=== PATIENT | female | born 1975 | race Caucasian/White ===

== ENCOUNTER 2019-05-30 14:22 | Emergency (ER) | payer SELFPAY ==
[2019-05-30 14:26] VITALS: BP 146/88; PULSE 96; RESP 20; TEMP 36.2; O2SAT 91
--- NOTE | 2019-05-30 14:32 | DI.RAD.S_ITS ---
PROCEDURE: XR CHEST 1V INDICATIONS: soa TECHNIQUE: One view of the chest was acquired. COMPARISON: [facility], CR, XR CHEST 1 VIEW, 04/13/2019, 16:14. FINDINGS: Surgical changes and devices: None. Lungs and pleura: Lungs are clear. No pleural effusions or pneumothorax. Mediastinum: Mediastinal contours appear normal. Heart size is normal. Bones and chest wall: No suspicious bony lesions. Overlying soft tissues appear unremarkable. IMPRESSION: No acute cardiopulmonary process is evident. Dictated by: Anshu Valencia M.D. on 05/30/2019 at 14:29 Approved by: Anshu Valencia M.D. on 05/30/2019 at 14:29
[2019-05-30] MEDS: ALBUTEROL 2.5 MG/3 ML NEB (ADULT) INH (14:56)
[2019-05-30 15:04] VITALS: PULSE 78; RESP 20
[2019-05-30] MEDS: SODIUM CHLORIDE 0.9% 1,000 ML 1000 ML IV (15:19)
[2019-05-30] MEDS: ONDANSETRON 4 MG/2 ML INJ IV (15:19)
[2019-05-30] MEDS: BENZONATATE 100 MG CAPSULE PO (15:21)
[2019-05-30 15:24] LABS: Add Manual Diff / Slide Review NO; Basophils Absolute Auto 100 /uL (0-100); Eosinophils Absolute Auto 900 /uL (0-450); Eosinophils Percent Auto 11.3 % (2-4); Hematocrit 45.6 % (36-46); Hemoglobin 15.8 g/dL (12.0-16.0); Lymphocytes Absolute Auto 2000 /uL (1100-4500); Lymphocytes Percent Auto 25.6 % (25-40); Mean Corpuscular HGB Conc 34.8 % (30-36); Mean Corpuscular Hemoglobin 32.1 PG (26-34); Mean Corpuscular Volume 92.4 fL (80-100); Monocytes Absolute Auto 400 /uL (0-900); Monocytes Percent Auto 5.5 % (3-14); Neutrophils Absolute Auto 4500 /uL (1500-7000); Neutrophils Percent Auto 56.6 % (50-75); Platelet Count 179 X10^3/uL (150-400); Red Blood Cell Count 4.93 X10^6/uL (4.0-5.2); Red Cell Distribution Width 14.4 % (11.6-14.8)
--- NOTE | 2019-05-30 15:27 | CM.MNRNOTE ---
Oxygen sats at 88-90%. Placed on 2l NC
[2019-05-30 15:33] LABS: Alanine Aminotransferase 19 IU/L (9-52); Albumin 4.5 g/dL (3.5-5.0); Albumin Globulin Ratio 1.5 (1.0-2.8); Alkaline Phosphatase 70 U/L (38-126); Aspartate Aminotransferase 18 IU/L (14-36); BUN Creatinine Ratio 13.3 (6-22); Bilirubin Total 0.9 mg/dL (0.2-1.3); Blood Urea Nitrogen 12 mg/dL (7-17); Calcium 9.7 mg/dL (8.4-10.2); Carbon Dioxide 24 mmol/L (22-32); Chloride 107 mmol/L (98-107); Estimated Glomerular Filt Rate > 60.0 mL/min (>60); Globulin 3.1 g/dL (1.7-4.1); Glucose 100 mg/dL (70-100); HEMOLYSIS 17 (0-50); Potassium 4.3 mmol/L (3.4-5.1); Sodium 141 mmol/L (137-145); Total Protein 7.6 g/dL (6.3-8.2)
[2019-05-30] MEDS: methylPREDNISolone 125 MG/2 ML VIAL IV (15:43)
[2019-05-30] MEDS: ALBUTEROL/IPRATROPIUM 3 ML AMPUL INH (16:50)
[2019-05-30 16:54] VITALS: PULSE 70; RESP 21
[2019-05-30] MEDS: guaiFENesin Solution 100 MG/5 ML UDC PO (17:01)
[2019-05-30 17:59] VITALS: BP 125/87; PULSE 82; RESP 22; O2SAT 90
--- NOTE | 2019-05-30 18:39 | ED.SOB ---
HPI - SOB/Dyspnea <FIFI Perez - Last Filed: 05/30/19 19:10> General Chief Complaint: Shortness of Breath/Dyspnea Stated Complaint: states upper respiratory issue,cough,sob, nausea Time Seen by Provider: 05/30/19 14:36 Source: patient and family Mode of arrival: ambulatory Limitations: no limitations History of Present Illness The patient is a 44-year-old female former smoker who presents with her friend, stating she has a history of possible COPD. She presents with a chief complaint of upper respiratory congestion, cough, shortness of breath and slight nausea. She states this been going on for few weeks, is worsening. She states she has wheezing, using her inhaler at home. She states that this has happened before. She denies any fevers, but states she feels warm. She denies any chest pain, but states that she has some tightness across her lungs depending on the position. She has not taken anything at home to feel better other than her albuterol inhaler. Related Data Home Medications Medication Instructions Recorded Confirmed albuterol sulfate 1 puff INHALATION PRN PRN 05/30/19 05/30/19 Previous Rx's Medication Instructions Recorded prednisone 50 mg PO DAILY 6 Days #6 tab 05/30/19 Allergies Allergy/AdvReac Type Severity Reaction Status Date / Time prednisone AdvReac Agitated Verified 05/30/19 14:33 Review of Systems <FIFI Perez - Last Filed: 05/30/19 19:10> Review of Systems GENERAL: See HPI HEENT: Denies sinus pain, ear pain, sore throat, difficulty swallowing, dizziness. RESPIRATORY: See HPI CARDIOVASCULAR: Denies chest pain, palpitations, orthopnea, edema, GASTROINTESTINAL: Denies nausea, vomiting, abdominal pain, diarrhea, constipation, melena. : Denies dysuria, frequency, incontinence, hematuria, urinary retention. MUSCULOSKELETAL: denies weakness, joint pain, or bony pain SKIN: Denies rash, skin lesions, or other NEUROLOGIC: Denies weakness, headache, numbness, change in speech, confusion, seizures, incoordination. PSYCHIATRIC: No concerning psychosocial issues. 12 point review of systems is negative except for those stated above PFSH <FIFI Perez - Last Filed: 05/30/19 19:10> Medical History Ex-smoker (Acute) Social History Smoking Status: Never smoker Social History Smoking Status: Never smoker Exam <VINICIUS Perez - Last Filed: 05/30/19 19:10> Narrative Exam Narrative: GENERAL: Obese female in no acute distress. HEAD: Atraumatic. Normocephalic. No temporal or scalp tenderness. EYES: Pupils equal round and reactive. Extraocular motions intact. No scleral icterus. No injection or drainage. ENT: Nose without bleeding, purulent drainage or septal hematoma. Throat without erythema, tonsillar hypertrophy or exudate. Uvula midline. Airway patent. NECK: Trachea midline. No JVD or lymphadenopathy. Supple, nontender, no meningeal signs. CARDIOVASCULAR: Regular rate and rhythm without murmurs, gallops, or rubs. RESPIRATORY: Expiratory wheezes bilaterally all yost. Breath sounds equal bilaterally. No rales or rhonchi. No cough on exam. No accessory muscle use, no stridor. No retractions. GASTROINTESTINAL: Abdomen soft, non-tender, nondistended. No hepato-splenomegaly, or palpable masses. No guarding. Active bowel sounds all 4 quadrants. EXTREMITIES: No clubbing, cyanosis, or edema. No joint tenderness, effusion, or edema noted. BACK: Nontender without deformity or crepitance. No flank tenderness. NEURO: AOx3. SKIN: No rash or erythema. Initial Vital Signs Initial Vital Signs: Vital Signs Temperature 97.2 F L 05/30/19 14:26 Pulse Rate 96 H 05/30/19 14:26 Respiratory Rate 20 05/30/19 14:26 Blood Pressure 146/88 H 05/30/19 14:26 Pulse Oximetry 91 05/30/19 14:26 <Zayda Sears DO - Last Filed: 05/30/19 19:46> Initial Vital Signs Initial Vital Signs: Vital Signs Temperature 97.2 F L 05/30/19 14:26 Pulse Rate 96 H 05/30/19 14:26 Respiratory Rate 20 05/30/19 14:26 Blood Pressure 146/88 H 05/30/19 14:26 Pulse Oximetry 91 05/30/19 14:26 Course <ADRYAN PerezP-BC - Last Filed: 05/30/19 19:10> Orders Ordered: ED Orders 05/30/19 14:32 XR chest 1V Stat EKG-12 Lead Stat 05/30/19 15:10 Complete Blood Count AUTO DIFF Stat Comprehensive Metabolic Panel Stat Discontinued Medications Albuterol (Ventolin) 2.5 mg INH NOW ONE Stop: 05/30/19 14:55 Last Admin: 05/30/19 14:56 Dose: 2.5 mg Albuterol/Ipratropium (Duoneb) 3 ml INH NOW ONE Stop: 05/30/19 16:27 Last Admin: 05/30/19 16:50 Dose: 3 ml Benzonatate (Tessalon Perles) 100 mg PO NOW ONE Stop: 05/30/19 15:13 Last Admin: 05/30/19 15:21 Dose: 100 mg Guaifenesin (Robitussin Liquid) 100 mg PO NOW ONE Stop: 05/30/19 16:47 Last Admin: 05/30/19 17:01 Dose: 100 mg Sodium Chloride (Normal Saline 0.9%) 1,000 mls @ 1,000 mls/hr IV BOLUS ONE Stop: 05/30/19 16:03 Last Infusion: 05/30/19 16:30 Dose: 0 mls/hr Admin: 05/30/19 15:19 Dose: 1,000 mls/hr Methylprednisolone (Solu-Medrol 125 Mg Vial) 125 mg IV NOW ONE Stop: 05/30/19 15:40 Last Admin: 05/30/19 15:43 Dose: 125 mg Ondansetron HCl (Zofran) 4 mg IV NOW ONE Stop: 05/30/19 15:05 Last Admin: 05/30/19 15:19 Dose: 4 mg Vital Signs - 8 hr 05/30/19 14:26 05/30/19 15:04 05/30/19 16:54 Temperature 97.2 F L Pulse Rate 96 H 78 70 Respiratory Rate 20 20 21 Blood Pressure 146/88 H Pulse Oximetry 91 05/30/19 17:59 Temperature Pulse Rate 82 Respiratory Rate 22 Blood Pressure 125/87 Pulse Oximetry 90 L <Zayda Sears DO - Last Filed: 05/30/19 19:46> Orders Ordered: ED Orders 05/30/19 14:32 XR chest 1V Stat EKG-12 Lead Stat 05/30/19 15:10 Complete Blood Count AUTO DIFF Stat Comprehensive Metabolic Panel Stat Discontinued Medications Albuterol (Ventolin) 2.5 mg INH NOW ONE Stop: 05/30/19 14:55 Last Admin: 05/30/19 14:56 Dose: 2.5 mg Albuterol/Ipratropium (Duoneb) 3 ml INH NOW ONE Stop: 05/30/19 16:27 Last Admin: 05/30/19 16:50 Dose: 3 ml Benzonatate (Tessalon Perles) 100 mg PO NOW ONE Stop: 05/30/19 15:13 Last Admin: 05/30/19 15:21 Dose: 100 mg Guaifenesin (Robitussin Liquid) 100 mg PO NOW ONE Stop: 05/30/19 16:47 Last Admin: 05/30/19 17:01 Dose: 100 mg Sodium Chloride (Normal Saline 0.9%) 1,000 mls @ 1,000 mls/hr IV BOLUS ONE Stop: 05/30/19 16:03 Last Infusion: 05/30/19 16:30 Dose: 0 mls/hr Admin: 05/30/19 15:19 Dose: 1,000 mls/hr Methylprednisolone (Solu-Medrol 125 Mg Vial) 125 mg IV NOW ONE Stop: 05/30/19 15:40 Last Admin: 05/30/19 15:43 Dose: 125 mg Ondansetron HCl (Zofran) 4 mg IV NOW ONE Stop: 05/30/19 15:05 Last Admin: 05/30/19 15:19 Dose: 4 mg Vital Signs - 8 hr 05/30/19 14:26 05/30/19 15:04 05/30/19 16:54 Temperature 97.2 F L Pulse Rate 96 H 78 70 Respiratory Rate 20 20 21 Blood Pressure 146/88 H Pulse Oximetry 91 05/30/19 17:59 Temperature Pulse Rate 82 Respiratory Rate 22 Blood Pressure 125/87 Pulse Oximetry 90 L MDM - SOB/Dyspnea <VINICIUS Perez - Last Filed: 05/30/19 19:10> Lab Data Result diagrams: 05/30/19 15:10 05/30/19 15:10 Lab Results 07/24/19 07/24/19 Range/Units 15:10 15:10 WBC 8.0 (4.5-11.0) X10^3/uL RBC 4.93 (4.0-5.2) X10^6/uL Hgb 15.8 (12.0-16.0) g/dL Hct 45.6 (36-46) % MCV 92.4 (80-100) fL MCH 32.1 (26-34) PG MCHC 34.8 (30-36) % RDW 14.4 (11.6-14.8) % Plt Count 179 (150-400) X10^3/uL Neut % (Auto) 56.6 (50-75) % Lymph % (Auto) 25.6 (25-40) % [place] % (Auto) 5.5 (3-14) % Eos % (Auto) 11.3 H (2-4) % Baso % (Auto) 1.0 (0-2) % Neut # (Auto) 4500 (3625-0347) /uL Lymph # (Auto) 2000 (3525-1863) /uL [place] # (Auto) 400 (0-900) /uL Eos # (Auto) 900 H (0-450) /uL Baso # (Auto) 100 (0-100) /uL Sodium 141 (137-145) mmol/L Potassium 4.3 (3.4-5.1) mmol/L Chloride 107 (98-107) mmol/L Carbon Dioxide 24 (22-32) mmol/L BUN 12 (7-17) mg/dL Creatinine 0.90 (0.52-1.04) mg/dL Estimated GFR > 60.0 (>60) mL/min BUN/Creatinine Ratio 13.3 (6-22) Glucose 100 (70-100) mg/dL Calcium 9.7 (8.4-10.2) mg/dL Total Bilirubin 0.9 (0.2-1.3) mg/dL AST 18 (14-36) IU/L ALT 19 (9-52) IU/L Alkaline Phosphatase 70 (38-126) U/L Total Protein 7.6 (6.3-8.2) g/dL Albumin 4.5 (3.5-5.0) g/dL Globulin 3.1 (1.7-4.1) g/dL Albumin/Globulin Ratio 1.5 (1.0-2.8) Imaging Data Chest x-ray: Radiologist's impression: [address] [address] XRay Report Signed Patient: Nayla Salazar [facility]#: [id number] : 1975Acct:[id number] Age/Sex: 44 / FDate of Service: 05/30/19 Loc: ED Accession Number: [id number] Procedure: XR chest 1V Ordering Provider: Zayda Sarah PROCEDURE: XR CHEST 1V INDICATIONS: soa TECHNIQUE: One view of the chest was acquired. COMPARISON: [facility], , XR CHEST 1 VIEW, 04/13/2019, 16:14. FINDINGS: Surgical changes and devices: None. Lungs and pleura: Lungs are clear. No pleural effusions or pneumothorax. Mediastinum: Mediastinal contours appear normal. Heart size is normal. Bones and chest wall: No suspicious bony lesions. Overlying soft tissues appear unremarkable. IMPRESSION: No acute cardiopulmonary process is evident. Dictated by: Anshu Valencia M.D. on 05/30/2019 at 14:29 Approved by: Anshu Valencia M.D. on 05/30/2019 at 14:29 ECG Data Attestation: I personally reviewed and interpreted this ECG as follows: Interpretation: Sinus rhythm. Ventricular rate 88. No ectopy noted. No ST elevation or depression noted. AR interval 120. QRS 105. Viewed by Dr Orion PIERRE Narrative Medical decision making narrative: The patient is a 44-year-old female who presents with a chief complaint of difficulty breathing. She has a clean chest x-ray, but is very wheezy on exam. She was evaluated by a a respiratory therapist several times throughout her stay. She does not have an elevated white blood cell count, which is reassuring. However despite nebulizers as well as IV steroids, the patient persistently maintained SpO2 in the 88-92 range. She did not want to stay in the hospital, and adamantly refused. She is GCS 15, and capable of making her decisions. When she made this decision, she was 92% on room air will speaking with me. I discussed at length that she can come back to the emergency department for any acute concerns such as chest pain, worsening shortness of breath. I discussed that she is risking by leaving the hospital. I did give her prescription of steroids. Of note she has steroids listed as an allergy, but states she gets mean when she takes them. She was able to tolerate them well in the emergency department today. I discussed at length that she is leaving against medical advice, especially given her low oxygen levels. She is okay with this and does not want to be admitted to the hospital. She does state that she follow up with her PCP or come back to the ER if needed. <Zayda Sears, DO - Last Filed: 05/30/19 19:46> Lab Data Lab Results 05/30/19 05/30/19 Range/Units 15:10 15:10 WBC 8.0 (4.5-11.0) X10^3/uL RBC 4.93 (4.0-5.2) X10^6/uL Hgb 15.8 (12.0-16.0) g/dL Hct 45.6 (36-46) % MCV 92.4 (80-100) fL MCH 32.1 (26-34) PG MCHC 34.8 (30-36) % RDW 14.4 (11.6-14.8) % Plt Count 179 (150-400) X10^3/uL Neut % (Auto) 56.6 (50-75) % Lymph % (Auto) 25.6 (25-40) % [place] % (Auto) 5.5 (3-14) % Eos % (Auto) 11.3 H (2-4) % Baso % (Auto) 1.0 (0-2) % Neut # (Auto) 4500 (5075-7863) /uL Lymph # (Auto) 2000 (2636-1856) /uL [place] # (Auto) 400 (0-900) /uL Eos # (Auto) 900 H (0-450) /uL Baso # (Auto) 100 (0-100) /uL Sodium 141 (137-145) mmol/L Potassium 4.3 (3.4-5.1) mmol/L Chloride 107 (98-107) mmol/L Carbon Dioxide 24 (22-32) mmol/L BUN 12 (7-17) mg/dL Creatinine 0.90 (0.52-1.04) mg/dL Estimated GFR > 60.0 (>60) mL/min BUN/Creatinine Ratio 13.3 (6-22) Glucose 100 (70-100) mg/dL Calcium 9.7 (8.4-10.2) mg/dL Total Bilirubin 0.9 (0.2-1.3) mg/dL AST 18 (14-36) IU/L ALT 19 (9-52) IU/L Alkaline Phosphatase 70 (38-126) U/L Total Protein 7.6 (6.3-8.2) g/dL Albumin 4.5 (3.5-5.0) g/dL Globulin 3.1 (1.7-4.1) g/dL Albumin/Globulin Ratio 1.5 (1.0-2.8) Discharge Plan Departure Patient Disposition: Left Against Medical Advice Clinical Impression: Wheezing Discharge Date/Time: 05/30/19 18:00 Interventions: ED Discharge Assessment Last Done: 05/30/19 17:59 Instructions: DI for Shortness of Breath Activity Restrictions/Additional Instructions: You did not want to get admitted to the hospital today. I have given you a prescription of steroids. Please follow up with primary care provider as soon as possible. Please come back to the emergency department for any acute concerns such as severe chest pain or shortness of breath. You are leaving against medical advice given your oxygen levels. Prescriptions: New prednisone 50 mg tablet 50 mg PO DAILY 6 Days Qty: 6 RF: 0 No Action albuterol sulfate 90 mcg/actuation Aerosol Powdr Breath Activated 1 puff inhalation PRN PRN (Reason: Shortness Of Breath) RF: 0 Stand Alone Forms: Against Medical Advice <Zayda Sears DO - Last Filed: 05/30/19 19:46> Cosign ED Attending Shawnature Attestation: I was immediately available in the department for consultation. This documentation has been reviewed and I agree with assessment and plan. Supervised by Zayda Sears DO
--- NOTE | 2019-05-30 19:07 | ED_ITS ---
HPI - SOB/Dyspnea <FIFI Perez - Last Filed: 05/30/19 19:10> General Chief Complaint: Shortness of Breath/Dyspnea Stated Complaint: states upper respiratory issue,cough,sob, nausea Time Seen by Provider: 05/30/19 14:36 Source: patient and family Mode of arrival: ambulatory Limitations: no limitations History of Present Illness The patient is a 44-year-old female former smoker who presents with her friend, stating she has a history of possible COPD. She presents with a chief complaint of upper respiratory congestion, cough, shortness of breath and slight nausea. She states this been going on for few weeks, is worsening. She states she has wheezing, using her inhaler at home. She states that this has happened before. She denies any fevers, but states she feels warm. She denies any chest pain, but states that she has some tightness across her lungs depending on the position. She has not taken anything at home to feel better other than her albuterol inhaler. Related Data Home Medications Medication Instructions Recorded Confirmed albuterol sulfate 1 puff INHALATION PRN PRN 05/30/19 05/30/19 Previous Rx's Medication Instructions Recorded prednisone 50 mg PO DAILY 6 Days #6 tab 05/30/19 Allergies Allergy/AdvReac Type Severity Reaction Status Date / Time prednisone AdvReac Agitated Verified 05/30/19 14:33 Review of Systems <FIFI Perez - Last Filed: 05/30/19 19:10> Review of Systems GENERAL: See HPI HEENT: Denies sinus pain, ear pain, sore throat, difficulty swallowing, dizziness. RESPIRATORY: See HPI CARDIOVASCULAR: Denies chest pain, palpitations, orthopnea, edema, GASTROINTESTINAL: Denies nausea, vomiting, abdominal pain, diarrhea, constipation, melena. : Denies dysuria, frequency, incontinence, hematuria, urinary retention. MUSCULOSKELETAL: denies weakness, joint pain, or bony pain SKIN: Denies rash, skin lesions, or other NEUROLOGIC: Denies weakness, headache, numbness, change in speech, confusion, seizures, incoordination. PSYCHIATRIC: No concerning psychosocial issues. 12 point review of systems is negative except for those stated above PFSH <FIFI Perez - Last Filed: 05/30/19 19:10> Medical History Ex-smoker (Acute) Social History Smoking Status: Never smoker Social History Smoking Status: Never smoker Exam <VINICIUS Perez - Last Filed: 05/30/19 19:10> Narrative Exam Narrative: GENERAL: Obese female in no acute distress. HEAD: Atraumatic. Normocephalic. No temporal or scalp tenderness. EYES: Pupils equal round and reactive. Extraocular motions intact. No scleral icterus. No injection or drainage. ENT: Nose without bleeding, purulent drainage or septal hematoma. Throat without erythema, tonsillar hypertrophy or exudate. Uvula midline. Airway patent. NECK: Trachea midline. No JVD or lymphadenopathy. Supple, nontender, no meningeal signs. CARDIOVASCULAR: Regular rate and rhythm without murmurs, gallops, or rubs. RESPIRATORY: Expiratory wheezes bilaterally all yost. Breath sounds equal bilaterally. No rales or rhonchi. No cough on exam. No accessory muscle use, no stridor. No retractions. GASTROINTESTINAL: Abdomen soft, non-tender, nondistended. No hepato- splenomegaly, or palpable masses. No guarding. Active bowel sounds all 4 quadrants. EXTREMITIES: No clubbing, cyanosis, or edema. No joint tenderness, effusion, or edema noted. BACK: Nontender without deformity or crepitance. No flank tenderness. NEURO: AOx3. SKIN: No rash or erythema. Initial Vital Signs Initial Vital Signs: Vital Signs Temperature 97.2 F L 05/30/19 14:26 Pulse Rate 96 H 05/30/19 14:26 Respiratory Rate 20 05/30/19 14:26 Blood Pressure 146/88 H 05/30/19 14:26 Pulse Oximetry 91 05/30/19 14:26 <Zayda Sears DO - Last Filed: 05/30/19 19:46> Initial Vital Signs Initial Vital Signs: Vital Signs Temperature 97.2 F L 05/30/19 14:26 Pulse Rate 96 H 05/30/19 14:26 Respiratory Rate 20 05/30/19 14:26 Blood Pressure 146/88 H 05/30/19 14:26 Pulse Oximetry 91 05/30/19 14:26 Course <ADRYAN PerezP-BC - Last Filed: 05/30/19 19:10> Orders Ordered: ED Orders 05/30/19 14:32 XR chest 1V Stat EKG-12 Lead Stat 05/30/19 15:10 Complete Blood Count AUTO DIFF Stat Comprehensive Metabolic Panel Stat Discontinued Medications Albuterol (Ventolin) 2.5 mg INH NOW ONE Stop: 05/30/19 14:55 Last Admin: 05/30/19 14:56 Dose: 2.5 mg Albuterol/Ipratropium (Duoneb) 3 ml INH NOW ONE Stop: 05/30/19 16:27 Last Admin: 05/30/19 16:50 Dose: 3 ml Benzonatate (Tessalon Perles) 100 mg PO NOW ONE Stop: 05/30/19 15:13 Last Admin: 05/30/19 15:21 Dose: 100 mg Guaifenesin (Robitussin Liquid) 100 mg PO NOW ONE Stop: 05/30/19 16:47 Last Admin: 05/30/19 17:01 Dose: 100 mg Sodium Chloride (Normal Saline 0.9%) 1,000 mls @ 1,000 mls/hr IV BOLUS ONE Stop: 05/30/19 16:03 Last Infusion: 05/30/19 16:30 Dose: 0 mls/hr Admin: 05/30/19 15:19 Dose: 1,000 mls/hr Methylprednisolone (Solu-Medrol 125 Mg Vial) 125 mg IV NOW ONE Stop: 05/30/19 15:40 Last Admin: 05/30/19 15:43 Dose: 125 mg Ondansetron HCl (Zofran) 4 mg IV NOW ONE Stop: 05/30/19 15:05 Last Admin: 05/30/19 15:19 Dose: 4 mg Vital Signs - 8 hr 05/30/19 14:26 05/30/19 15:04 05/30/19 16:54 Temperature 97.2 F L Pulse Rate 96 H 78 70 Respiratory Rate 20 20 21 Blood Pressure 146/88 H Pulse Oximetry 91 05/30/19 17:59 Temperature Pulse Rate 82 Respiratory Rate 22 Blood Pressure 125/87 Pulse Oximetry 90 L <Zayda Sears DO - Last Filed: 05/30/19 19:46> Orders Ordered: ED Orders 05/30/19 14:32 XR chest 1V Stat EKG-12 Lead Stat 05/30/19 15:10 Complete Blood Count AUTO DIFF Stat Comprehensive Metabolic Panel Stat Discontinued Medications Albuterol (Ventolin) 2.5 mg INH NOW ONE Stop: 05/30/19 14:55 Last Admin: 05/30/19 14:56 Dose: 2.5 mg Albuterol/Ipratropium (Duoneb) 3 ml INH NOW ONE Stop: 05/30/19 16:27 Last Admin: 05/30/19 16:50 Dose: 3 ml Benzonatate (Tessalon Perles) 100 mg PO NOW ONE Stop: 05/30/19 15:13 Last Admin: 05/30/19 15:21 Dose: 100 mg Guaifenesin (Robitussin Liquid) 100 mg PO NOW ONE Stop: 05/30/19 16:47 Last Admin: 05/30/19 17:01 Dose: 100 mg Sodium Chloride (Normal Saline 0.9%) 1,000 mls @ 1,000 mls/hr IV BOLUS ONE Stop: 05/30/19 16:03 Last Infusion: 05/30/19 16:30 Dose: 0 mls/hr Admin: 05/30/19 15:19 Dose: 1,000 mls/hr Methylprednisolone (Solu-Medrol 125 Mg Vial) 125 mg IV NOW ONE Stop: 05/30/19 15:40 Last Admin: 05/30/19 15:43 Dose: 125 mg Ondansetron HCl (Zofran) 4 mg IV NOW ONE Stop: 05/30/19 15:05 Last Admin: 05/30/19 15:19 Dose: 4 mg Vital Signs - 8 hr 05/30/19 14:26 05/30/19 15:04 05/30/19 16:54 Temperature 97.2 F L Pulse Rate 96 H 78 70 Respiratory Rate 20 20 21 Blood Pressure 146/88 H Pulse Oximetry 91 05/30/19 17:59 Temperature Pulse Rate 82 Respiratory Rate 22 Blood Pressure 125/87 Pulse Oximetry 90 L MDM - SOB/Dyspnea <VINICIUS Perez - Last Filed: 05/30/19 19:10> Lab Data Result diagrams: 05/30/19 15:10 05/30/19 15:10 Lab Results 07/24/19 07/24/19 Range/Units 15:10 15:10 WBC 8.0 (4.5-11.0) X10^3/uL RBC 4.93 (4.0-5.2) X10^6/uL Hgb 15.8 (12.0-16.0) g/dL Hct 45.6 (36-46) % MCV 92.4 (80-100) fL MCH 32.1 (26-34) PG MCHC 34.8 (30-36) % RDW 14.4 (11.6-14.8) % Plt Count 179 (150-400) X10^3/uL Neut % (Auto) 56.6 (50-75) % Lymph % (Auto) 25.6 (25-40) % [place] % (Auto) 5.5 (3-14) % Eos % (Auto) 11.3 H (2-4) % Baso % (Auto) 1.0 (0-2) % Neut # (Auto) 4500 (9566-3220) /uL Lymph # (Auto) 2000 (8874-7414) /uL [place] # (Auto) 400 (0-900) /uL Eos # (Auto) 900 H (0-450) /uL Baso # (Auto) 100 (0-100) /uL Sodium 141 (137-145) mmol/L Potassium 4.3 (3.4-5.1) mmol/L Chloride 107 (98-107) mmol/L Carbon Dioxide 24 (22-32) mmol/L BUN 12 (7-17) mg/dL Creatinine 0.90 (0.52-1.04) mg/dL Estimated GFR > 60.0 (>60) mL/min BUN/Creatinine Ratio 13.3 (6-22) Glucose 100 (70-100) mg/dL Calcium 9.7 (8.4-10.2) mg/dL Total Bilirubin 0.9 (0.2-1.3) mg/dL AST 18 (14-36) IU/L ALT 19 (9-52) IU/L Alkaline Phosphatase 70 (38-126) U/L Total Protein 7.6 (6.3-8.2) g/dL Albumin 4.5 (3.5-5.0) g/dL Globulin 3.1 (1.7-4.1) g/dL Albumin/Globulin Ratio 1.5 (1.0-2.8) Imaging Data Chest x-ray: Radiologist's impression: [address] [address] XRay Report Signed Patient: Nayla Salazar [facility]#: [id number] : 1975Acct:[id number] Age/Sex: 44 / FDate of Service: 05/30/19 Loc: ED Accession Number: [id number] Procedure: XR chest 1V Ordering Provider: Zayda Sarah PROCEDURE: XR CHEST 1V INDICATIONS: soa TECHNIQUE: One view of the chest was acquired. COMPARISON: [facility], , XR CHEST 1 VIEW, 04/13/2019, 16:14. FINDINGS: Surgical changes and devices: None. Lungs and pleura: Lungs are clear. No pleural effusions or pneumothorax. Mediastinum: Mediastinal contours appear normal. Heart size is normal. Bones and chest wall: No suspicious bony lesions. Overlying soft tissues appear unremarkable. IMPRESSION: No acute cardiopulmonary process is evident. Dictated by: Anshu Valencia M.D. on 05/30/2019 at 14:29 Approved by: Anshu Valencia M.D. on 05/30/2019 at 14:29 ECG Data Attestation: I personally reviewed and interpreted this ECG as follows: Interpretation: Sinus rhythm. Ventricular rate 88. No ectopy noted. No ST elevation or depression noted. NH interval 120. QRS 105. Viewed by Dr Orion PIERRE Narrative Medical decision making narrative: The patient is a 44-year-old female who presents with a chief complaint of difficulty breathing. She has a clean chest x-ray, but is very wheezy on exam. She was evaluated by a a respiratory therapist several times throughout her stay. She does not have an elevated white blood cell count, which is reassuring. However despite nebulizers as well as IV steroids, the patient persistently maintained SpO2 in the 88-92 range. She did not want to stay in the hospital, and adamantly refused. She is GCS 15, and capable of making her decisions. When she made this decision, she was 92% on room air will speaking with me. I discussed at length that she can come back to the emergency department for any acute concerns such as chest pain, worsening shortness of breath. I discussed that she is risking by leaving the hospital. I did give her prescription of steroids. Of note she has steroids listed as an allergy, but states she gets mean when she takes them. She was able to tolerate them well in the emergency department today. I discussed at length that she is leaving against medical advice, especially given her low oxygen levels. She is okay with this and does not want to be admitted to the hospital. She does state that she follow up with her PCP or come back to the ER if needed. <Zayda Sears, DO - Last Filed: 05/30/19 19:46> Lab Data Lab Results 05/30/19 05/30/19 Range/Units 15:10 15:10 WBC 8.0 (4.5-11.0) X10^3/uL RBC 4.93 (4.0-5.2) X10^6/uL Hgb 15.8 (12.0-16.0) g/dL Hct 45.6 (36-46) % MCV 92.4 (80-100) fL MCH 32.1 (26-34) PG MCHC 34.8 (30-36) % RDW 14.4 (11.6-14.8) % Plt Count 179 (150-400) X10^3/uL Neut % (Auto) 56.6 (50-75) % Lymph % (Auto) 25.6 (25-40) % [place] % (Auto) 5.5 (3-14) % Eos % (Auto) 11.3 H (2-4) % Baso % (Auto) 1.0 (0-2) % Neut # (Auto) 4500 (9351-1834) /uL Lymph # (Auto) 2000 (4782-1507) /uL [place] # (Auto) 400 (0-900) /uL Eos # (Auto) 900 H (0-450) /uL Baso # (Auto) 100 (0-100) /uL Sodium 141 (137-145) mmol/L Potassium 4.3 (3.4-5.1) mmol/L Chloride 107 (98-107) mmol/L Carbon Dioxide 24 (22-32) mmol/L BUN 12 (7-17) mg/dL Creatinine 0.90 (0.52-1.04) mg/dL Estimated GFR > 60.0 (>60) mL/min BUN/Creatinine Ratio 13.3 (6-22) Glucose 100 (70-100) mg/dL Calcium 9.7 (8.4-10.2) mg/dL Total Bilirubin 0.9 (0.2-1.3) mg/dL AST 18 (14-36) IU/L ALT 19 (9-52) IU/L Alkaline Phosphatase 70 (38-126) U/L Total Protein 7.6 (6.3-8.2) g/dL Albumin 4.5 (3.5-5.0) g/dL Globulin 3.1 (1.7-4.1) g/dL Albumin/Globulin Ratio 1.5 (1.0-2.8) Discharge Plan Departure Patient Disposition: Left Against Medical Advice Clinical Impression: Wheezing Discharge Date/Time: 05/30/19 18:00 Interventions: ED Discharge Assessment Last Done: 05/30/19 17:59 Instructions: DI for Shortness of Breath Activity Restrictions/Additional Instructions: You did not want to get admitted to the hospital today. I have given you a prescription of steroids. Please follow up with primary care provider as soon as possible. Please come back to the emergency department for any acute concerns such as severe chest pain or shortness of breath. You are leaving against medical advice given your oxygen levels. Prescriptions: New prednisone 50 mg tablet 50 mg PO DAILY 6 Days Qty: 6 RF: 0 No Action albuterol sulfate 90 mcg/actuation Aerosol Powdr Breath Activated 1 puff inhalation PRN PRN (Reason: Shortness Of Breath) RF: 0 Stand Alone Forms: Against Medical Advice <Zayda Sears DO - Last Filed: 05/30/19 19:46> Cosign ED Attending Shawnature Attestation: I was immediately available in the department for consultation. This documentation has been reviewed and I agree with assessment and plan. Supervised by Zayda Sears DO
== END 2019-05-30 18:00 | disposition left against medical advice (07) ==
PROVIDERS: Emergency Provider Nurse Practitioner Family
DX: R06.2 Wheezing (principal); R06.02 Shortness of breath
CPT/HCPCS: 36591; 71045; 80053; 85025; 93005; 94640; 96361; 96374; 96375; 99283; 99285; J2405; J2930; J7613

== ENCOUNTER 2021-02-25 11:08 | Emergency (ER) | payer SELFPAY ==
[2021-02-25 11:13] VITALS: BP 138/81; PULSE 84; RESP 15; TEMP 36.8; O2SAT 97; BMI 44.6
--- NOTE | 2021-02-25 11:54 | ED_ITS ---
HPI - Dental/Oral General Chief complaint: Dental/Oral Stated complaint: hx of jaw abscess x28 days Time Seen by Provider: 02/25/21 11:28 Source: patient Mode of arrival: Ambulatory Limitations: no limitations History of Present Illness HPI Narrative: Patient complains left jaw swelling with tooth pain for the past 28 days. Treated 1 month ago for 10 days penicillin without improvement. Patient states has poor dentition. Tooth 20. Is source of pain patient states. Seen by [place] emergency department 1 month ago. Denies does not want test. Does not smoke cigarettes. No diabetes. Denies any heart problems. Denies any dyspnea or trouble swallowing. Patient states she is currently living in her motor home. Complaint: tooth pain Related Data Home Medications Medication Instructions Recorded Confirmed albuterol sulfate 1 puff INHALATION PRN PRN 05/30/19 05/30/19 Previous Rx's Medication Instructions Recorded hydrocodone-acetaminophen 1 tab PO Q6H PRN #15 tab 02/25/21 ondansetron 4 mg PO Q8H PRN #10 tab 02/25/21 Allergies Allergy/AdvReac Type Severity Reaction Status Date / Time prednisone AdvReac Agitated Verified 02/25/21 11:16 Review of Systems Review of Systems Narrative: GENERAL: Denies chills, fatigue, malaise, fever, sweats. HEENT: Denies sinus pain, ear pain, sore throat, complaint of tooth pain RESPIRATORY: Denies dyspnea, cough CARDIOVASCULAR: Denies chest pain, palpitations GASTROINTESTINAL: Denies nausea, vomiting, abdominal pain : Denies dysuria, frequency, hematuria MUSCULOSKELETAL: denies muscle or bony pain SKIN: Denies rash, skin lesions NEUROLOGIC: Denies weakness, numbness ROS Unobtainable: All systems reviewed & are unremarkable except as noted in HPI and below Patient History Medical History Ex-smoker Social History Smoking Status: Never smoker Smoking Status: Never smoker alcohol intake frequency: holidays/special occasions only Substance Use Type: marijuana Exam Narrative Exam Narrative: GENERAL: in no distress, not toxic not dyspneic HEAD: Normocephalic. EYES: Pupils equal round No scleral icterus. No injection no discharge ENT: Mucous membranes moist. Tenderness to tooth 20. Poor dentition of this tooth. No palpable surrounding abscess. No tongue elevation no malocclusion no drooling. No stridor. NECK: Trachea midline. Mild tenderness left submandibular area. Skin is warm soft and pink no induration or erythema. No palpable abscess. There is edema at the left submandibular area. No stridor. CARDIOVASCULAR: Regular rate and rhythm without murmurs RESPIRATORY: Clear to auscultation. Breath sounds equal bilaterally. No wheezes, rales, or rhonchi. Speaking full sentences no distress GASTROINTESTINAL: Abdomen soft, non-tender EXTREMITIES: No gross deformities. BACK: No flank tenderness. NEURO: AOx4. SKIN: Warm and dry PSYCH: Not anxious, is cooperative Initial Vital Signs Initial Vital Signs: Vital Signs Temperature 98.2 F 02/25/21 11:13 Pulse Rate 84 02/25/21 11:13 Respiratory Rate 15 02/25/21 11:13 Blood Pressure 138/81 02/25/21 11:13 Pulse Oximetry 97 02/25/21 11:13 Course Course Course Narrative: Pain controlled while here. No new issues. No respiratory compromise Orders Ordered: Discontinued Medications Sodium Chloride (Normal Saline 0.9%) 500 mls @ 1,000 mls/hr IV BOLUS ONE Stop: 02/25/21 12:21 Last Infusion: 02/25/21 13:43 Dose: 0 mls/hr Documented by: Admin: 02/25/21 12:23 Dose: 1,000 mls/hr Documented by: ARNOLD Ketorolac Tromethamine (Ketorolac 60 Mg/2 Ml Vial) 15 mg IV NOW ONE Stop: 02/25/21 11:53 Last Admin: 02/25/21 12:24 Dose: 15 mg Documented by: ARNOLD Reevaluation(s) Reevaluation #1: Reviewed results with patient. Currently no abscess or cellulitis. White cell count normal. No fever. Appropriate for discharge home and follow-up with Oral maxillofacial/dentist. Will give patient referral. Patient agrees with treatment plan. Patient has history of Crohn's. She states she needs a work note for tomorrow Time: 14:10 Vital Signs Vital signs: Vital Signs - 8 hr 02/25/21 11:13 02/25/21 12:32 02/25/21 12:33 Temperature 98.2 F Pulse Rate 84 55 L 55 L Respiratory Rate 15 Blood Pressure 138/81 142/70 H Pulse Oximetry 97 98 02/25/21 12:34 Temperature Pulse Rate 58 L Respiratory Rate 17 Blood Pressure 140/80 Pulse Oximetry 99 MDM - Dental/Oral Differential Diagnosis Differential diagnosis: Likely gingival abscess, dental caries, toothache, dental abscess and fracture of tooth Lab Data Attestation: I reviewed the patient's lab results. Result diagrams: 02/25/21 12:09 02/25/21 12:09 Labs: Lab Results 02/25/21 02/25/21 Range/Units 12:09 12:09 WBC 5.3 (4.5-11.0) X10^3/uL RBC 4.35 (4.0-5.2) X10^6/uL Hgb 13.8 (12.0-16.0) g/dL Hct 40.4 (36-46) % MCV 92.9 (80-100) fL MCH 31.7 (26-34) PG MCHC 34.1 (30-36) % RDW 13.8 (11.6-14.8) % Plt Count 165 (150-400) X10^3/uL Neut % (Auto) 71.4 (50-75) % Lymph % (Auto) 15.2 L (25-40) % [place] % (Auto) 7.6 (3-14) % Eos % (Auto) 5.1 H (2-4) % Baso % (Auto) 0.7 (0-2) % Neut # (Auto) 3800 (2611-7827) /uL Lymph # (Auto) 800 L (8273-2259) /uL [place] # (Auto) 400 (0-900) /uL Eos # (Auto) 300 (0-450) /uL Baso # (Auto) 0 (0-100) /uL Sodium 140 (137-145) mmol/L Potassium 4.2 (3.4-5.1) mmol/L Chloride 109 H (98-107) mmol/L Carbon Dioxide 24 (22-32) mmol/L BUN 10 (7-17) mg/dL Creatinine 1.02 (0.52-1.04) mg/dL Estimated GFR 58.9 L (>60) mL/min BUN/Creatinine Ratio 9.8 (6-22) Glucose 91 (70-100) mg/dL Calcium 9.4 (8.4-10.2) mg/dL Imaging Data CT soft tissue neck: Radiologist's Impression: [address] [id number] Scan ReportSigned Patient: Nayla Salazar [facility]#: [id number]: 1975Acct:[id number]/Sex: 46 / FDate of Service: 02/25/21Loc: EDAccession Number: [id number] Procedure: CT soft tissue neck w con Ordering Provider: Lance Jade MD PROCEDURE: CT SOFT TISSUE NECK W CON INDICATIONS: Left jaw swelling TECHNIQUE: After the administration of intravenous contrast, 3.0 mm axial sections acquired from the sella to the aortic arch. Additional oblique axial 3.0 mm sections acquired through the pharynx. 3 mm thick coronal and sagittal reformats were generated. For radiation dose reduction, the following was used: automated exposure control. COMPARISON: , CT, CT FACIAL BONES WITH CONTRAST, 02/04/2021, 17:43. FINDINGS: Image quality: Excellent. Lymph nodes: No enlarged lymph nodes seen throughout the neck. Vessels: Visualized vasculature appears patent. Neck spaces: The oropharynx, nasopharynx, and pharynx demonstrate no mucosal lesions. The vocal cords, false vocal cords, pyriform sinuses, epiglottis, vallecula, and tongue base all appear normal. Extramucosal spaces appear unremarkable. Glands: The parotid and submandibular glands appear normal. Thyroid gland is unremarkable Miscellaneous: Visualized brain and orbits appear normal. Lung apices appear clear. Superficial soft tissues appear normal. Bones: As before, probable dental implant in the anterior right maxilla. There are no maxillary teeth present. The appearance of the maxilla is unchanged. Again noted is very poor dentition involving the mandibular teeth. There are multiple broken teeth. A prominent periapical lucency surrounding a left mandibular molar is unchanged. Posterior to this tooth, there are 2 small teeth which are barely in place. Visualized sinuses and mastoids appear unremarkable. IMPRESSION: 1. Poor dentition. 2. Left molar periapical lucency is unchanged. There are multiple broken teeth. 3. No deep space abscess in the adjacent tissues surrounding the maxilla or mandible. No neck abscess. Dictated by: Theo Trinidad M.D. on 02/25/2021 at 12:51 Approved by: Theo Trinidad M.D. on 02/25/2021 at 12:59 MDM Narrative Medical decision making narrative: Appropriate for discharge home and follow-up. Ongoing for 1 month. No infection. Patient agrees with treatment plan. Pain medicine/pain control provided for patient. Patient not toxic. Not dyspneic. No drooling. Protecting airway. Discharge Plan Departure Patient Disposition: Home Clinical Impression: Dental caries, Toothache Instructions: Tooth Decay Prevention (Alternative Therapy), Tooth Decay, DI for Dental Pain Activity Restrictions/Additional Instructions: No driving or operating machinery with prescribed pain medication. Call provided oral maxillofacial surgeon today for appointment within 1 week. Return if worse or if any questions or concerns Prescriptions: New hydrocodone-acetaminophen 5-325 mg tablet 1 tab PO Q6H PRN (Reason: pain) Qty: 15 RF: 0 ondansetron 4 mg tablet,disintegrating 4 mg PO Q8H PRN (Reason: nausea and vomiting) Qty: 10 RF: 0 No Action albuterol sulfate 90 mcg/actuation Aerosol Powdr Breath Activated 1 puff inhalation PRN PRN (Reason: Shortness Of Breath) RF: 0 Referrals: Adrien Corbin DMD [Physician] -
[2021-02-25 12:17] LABS: Add Manual Diff / Slide Review NO; Basophils Absolute Auto 0 /uL (0-100); Basophils Percent Auto 0.7 % (0-2); Eosinophils Absolute Auto 300 /uL (0-450); Eosinophils Percent Auto 5.1 % (2-4); Hematocrit 40.4 % (36-46); Hemoglobin 13.8 g/dL (12.0-16.0); Lymphocytes Absolute Auto 800 /uL (1100-4500); Lymphocytes Percent Auto 15.2 % (25-40); Mean Corpuscular HGB Conc 34.1 % (30-36); Mean Corpuscular Hemoglobin 31.7 PG (26-34); Mean Corpuscular Volume 92.9 fL (80-100); Monocytes Absolute Auto 400 /uL (0-900); Monocytes Percent Auto 7.6 % (3-14); Neutrophils Absolute Auto 3800 /uL (1500-7000); Neutrophils Percent Auto 71.4 % (50-75); Platelet Count 165 X10^3/uL (150-400); Red Blood Cell Count 4.35 X10^6/uL (4.0-5.2); Red Cell Distribution Width 13.8 % (11.6-14.8); White Blood Cell Count 5.3 X10^3/uL (4.5-11.0)
[2021-02-25] MEDS: SODIUM CHLORIDE 0.9% 500 ML 1000 ML IV (12:23)
[2021-02-25] MEDS: KETOROLAC 60 MG/2 ML VIAL 15 MG IV (12:24)
--- NOTE | 2021-02-25 12:25 | PC.NURSE ---
Left face swelling
[2021-02-25 12:28] LABS: BUN Creatinine Ratio 9.8 (6-22); Blood Urea Nitrogen 10 mg/dL (7-17); Calcium 9.4 mg/dL (8.4-10.2); Carbon Dioxide 24 mmol/L (22-32); Chloride 109 mmol/L (98-107); Estimated Glomerular Filt Rate 58.9 mL/min (>60); Glucose 91 mg/dL (70-100); HEMOLYSIS < 15 (0-50); Potassium 4.2 mmol/L (3.4-5.1); Sodium 140 mmol/L (137-145)
[2021-02-25 12:32] VITALS: PULSE 55; O2SAT 98
[2021-02-25 12:33] VITALS: BP 142/70; PULSE 55
[2021-02-25 12:34] VITALS: BP 140/80; PULSE 58; RESP 17; O2SAT 99
[2021-02-25 14:20] VITALS: BP 160/82; PULSE 58; RESP 18; O2SAT 98
== END 2021-02-25 14:20 | disposition home or self-care (01) ==
PROVIDERS: Emergency Provider Emergency Medicine
DX: K02.9 Dental caries, unspecified (principal); K08.89 Other specified disorders of teeth and supporting structures
CPT/HCPCS: 36415; 70491; 80048; 85025; 96361; 96374; 99284; J1885

== ENCOUNTER 2022-04-06 10:56 | Emergency (ER) | payer SELFPAY ==
[2022-04-06] VITALS (11 sets, daily range): BP systolic 126–173; BP diastolic 58–91; PULSE 73–98; RESP 16–36; TEMP 36.4; O2SAT 90–97; BMI 44.6
--- NOTE | 2022-04-06 11:22 | DI.RAD.S_ITS ---
PROCEDURE: XR CHEST 2V INDICATIONS: shortness of breath TECHNIQUE: 2 views of the chest were acquired. COMPARISON: [facility], CR, XR CHEST 1V, 05/30/2019, 14:37. FINDINGS: Surgical changes and devices: None. Lungs and pleura: Lungs are clear. No pleural effusions or pneumothorax. Mediastinum: Mediastinal contours are normal. Heart size is normal. Bones and chest wall: No suspicious bony abnormalities. Soft tissues appear unremarkable. IMPRESSION: No acute cardiopulmonary findings. Dictated by: Adwoa Orellana M.D. on 04/06/2022 at 12:03 Approved by: Adwoa Orellana M.D. on 04/06/2022 at 12:04
--- NOTE | 2022-04-06 11:36 | ED_ITS ---
HPI - SOB/Dyspnea General Chief Complaint: Shortness of Breath/Dyspnea Stated Complaint: SOB, nausea Time Seen by Provider: 04/06/22 11:36 Source: patient Mode of arrival: Ambulatory Limitations: no limitations History of Present Illness HPI Narrative: 47F nonsmoker with history of asthma presents with increasing shortness of breath for the past few days. She has been using her nebulizers at home more than normal and they stopped helping much over the past few days. She denies any fever or chills. She denies any chest pain. She has no nausea, vomiting or diarrhea. She states historically she tends to do better when she is on steroids. She is in a tenuous situation with her job and is unable to fill any prescriptions until her next paycheck on Tuesday. Related Data Home Medications Medication Instructions Recorded Confirmed albuterol sulfate 90 mcg/actuation 1 puff INHALATION PRN PRN 05/30/19 05/30/19 breath activated powder inhaler Previous Rx's Medication Instructions Recorded hydrocodone 5 mg-acetaminophen 325 1 tab PO Q6H PRN #15 tab 02/25/21 mg tablet ondansetron 4 mg disintegrating 4 mg PO Q8H PRN #10 tab 02/25/21 tablet prednisone 10 mg tablet See Rx Instructions .ROUTE 04/06/22 .COMPLEX #30 tab Allergies Allergy/AdvReac Type Severity Reaction Status Date / Time No Known Drug Allergies Allergy Verified 04/06/22 11:18 Review of Systems Review of Systems Narrative: GENERAL: Denies chills, fatigue, malaise, fever, sweats. HEENT: Denies sinus pain, ear pain, sore throat, difficulty swallowing, dizziness. RESPIRATORY: See HPI CARDIOVASCULAR: Denies chest pain, palpitations, orthopnea, edema, GASTROINTESTINAL: Denies nausea, vomiting, abdominal pain, diarrhea, constipation, melena. : Denies dysuria, frequency, incontinence, hematuria, urinary retention. MUSCULOSKELETAL: denies weakness, joint pain, or bony pain SKIN: Denies rash, skin lesions, or other NEUROLOGIC: Denies weakness, headache, numbness, change in speech, confusion, seizures, incoordination. PSYCHIATRIC: No concerning psychosocial issues. 12 point review of systems is negative except for those stated above Patient History Medical History Ex-smoker Social History Smoking Status: Never smoker Smoking Status: Never smoker alcohol intake frequency: holidays/special occasions only Substance Use Type: marijuana Exam Narrative Exam Narrative: GENERAL: [47] year old patient appears stated age. Well-developed patient, in mild distress. HEAD: Atraumatic. Normocephalic. EYES: Pupils equal round and reactive. Extraocular motions intact. No scleral icterus. No injection or drainage. ENT: Nose without bleeding, purulent drainage. Throat without erythema, tonsillar hypertrophy or exudate. Airway patent. NECK: Trachea midline. Non tender CARDIOVASCULAR: Regular rate and rhythm without murmurs, gallops, or rubs. RESPIRATORY: Increased work of breathing, wheezing throughout GASTROINTESTINAL: Abdomen soft, non-tender, nondistended. EXTREMITIES: No edema or joint tenderness. BACK: Nontender without deformity or crepitance. No flank tenderness. NEURO: AOx3. SKIN: No rash or erythema of visible areas Initial Vital Signs Initial Vital Signs: Vital Signs Temperature 97.5 F L 04/06/22 11:18 Pulse Rate 98 H 04/06/22 11:18 Respiratory Rate 16 04/06/22 11:18 Blood Pressure 173/91 H 04/06/22 11:18 Pulse Oximetry 93 04/06/22 11:18 Course Orders Ordered: Discontinued Medications Albuterol (Albuterol 2.5 Mg/3 Ml Neb (Adult)) 2.5 mg INH NOW ONE Stop: 04/06/22 11:47 Last Admin: 04/06/22 12:20 Dose: 2.5 mg Documented by: MILTON Albuterol (Albuterol Hfa Prepack) 1 box MISC SEEINSTR ONE Stop: 04/06/22 14:38 Last Admin: 04/06/22 14:42 Dose: 1 box Documented by: MILTON Albuterol/Ipratropium (Albuterol/Ipratropium 3 Ml Ampul) 3 ml INH NOW ONE Stop: 04/06/22 11:23 Last Admin: 04/06/22 11:40 Dose: 3 ml Documented by: MILTON Dexamethasone (Dexamethasone 10 Mg/Ml Vial) 10 mg IV NOW ONE Stop: 04/06/22 12:06 Last Admin: 04/06/22 12:46 Dose: 10 mg Documented by: HELENA Reevaluation(s) Reevaluation #1: Significant improvement after DuoNeb Vital Signs Vital signs: Vital Signs - 8 hr 04/06/22 11:18 04/06/22 11:41 Temperature 97.5 F L Pulse Rate 98 H 98 H Respiratory Rate 16 16 Blood Pressure 173/91 H Pulse Oximetry 93 93 MDM - SOB/Dyspnea Lab Data Result diagrams: 04/06/22 11:30 04/06/22 11:30 Labs: Lab Results 04/06/22 04/06/22 04/06/22 Range/Units 11:25 11:30 11:30 WBC 6.6 (4.5-11.0) X10^3/uL RBC 4.54 (4.0-5.2) X10^6/uL Hgb 14.6 (12.0-16.0) g/dL Hct 42.0 (36-46) % MCV 92.6 (80-100) fL MCH 32.2 (26-34) PG MCHC 34.8 (30-36) % RDW 13.8 (11.6-14.8) % Plt Count 158 (150-400) X10^3/uL Neut % (Auto) 62.1 (50-75) % Lymph % (Auto) 21.1 L (25-40) % [place] % (Auto) 4.6 (3-14) % Eos % (Auto) 11.3 H (2-4) % Baso % (Auto) 0.9 (0-2) % Neut # (Auto) 4100 (4332-8928) /uL Lymph # (Auto) 1400 (8083-8205) /uL [place] # (Auto) 300 (0-900) /uL Eos # (Auto) 800 H (0-450) /uL Baso # (Auto) 100 (0-100) /uL PT (10.1-12.7) SECONDS INR (0.9-1.3) Sodium 142 (137-145) mmol/L Potassium 4.2 (3.4-5.1) mmol/L Chloride 111 H (98-107) mmol/L Carbon Dioxide 21 L (22-32) mmol/L BUN 12 (7-17) mg/dL Creatinine 0.94 (0.52-1.04) mg/dL Estimated GFR > 60 (>60) mL/min BUN/Creatinine Ratio 12.8 (6-22) Glucose 102 H (70-100) mg/dL Lactate (0.7-2.1) mmol/L Calcium 9.1 (8.4-10.2) mg/dL Total Bilirubin 0.5 (0.2-1.3) mg/dL AST 32 (14-36) IU/L ALT 21 (<35) IU/L Alkaline Phosphatase 70 (38-126) U/L NT-Pro-B Natriuret Pep (<125) pg/mL Total Protein 7.1 (6.3-8.2) g/dL Albumin 4.3 (3.5-5.0) g/dL Globulin 2.8 (1.7-4.1) g/dL Albumin/Globulin Ratio 1.5 (1.0-2.8) SARS-CoV-2 (PCR) Negative (Negative) 04/06/22 04/06/22 04/06/22 Range/Units 11:30 11:30 11:30 WBC (4.5-11.0) X10^3/uL RBC (4.0-5.2) X10^6/uL Hgb (12.0-16.0) g/dL Hct (36-46) % MCV (80-100) fL MCH (26-34) PG MCHC (30-36) % RDW (11.6-14.8) % Plt Count (150-400) X10^3/uL Neut % (Auto) (50-75) % Lymph % (Auto) (25-40) % [place] % (Auto) (3-14) % Eos % (Auto) (2-4) % Baso % (Auto) (0-2) % Neut # (Auto) (5508-4068) /uL Lymph # (Auto) (1034-0981) /uL [place] # (Auto) (0-900) /uL Eos # (Auto) (0-450) /uL Baso # (Auto) (0-100) /uL PT 10.7 (10.1-12.7) SECONDS INR 1.0 (0.9-1.3) Sodium (137-145) mmol/L Potassium (3.4-5.1) mmol/L Chloride (98-107) mmol/L Carbon Dioxide (22-32) mmol/L BUN (7-17) mg/dL Creatinine (0.52-1.04) mg/dL Estimated GFR (>60) mL/min BUN/Creatinine Ratio (6-22) Glucose (70-100) mg/dL Lactate 0.9 (0.7-2.1) mmol/L Calcium (8.4-10.2) mg/dL Total Bilirubin (0.2-1.3) mg/dL AST (14-36) IU/L ALT (<35) IU/L Alkaline Phosphatase (38-126) U/L NT-Pro-B Natriuret Pep 32 (<125) pg/mL Total Protein (6.3-8.2) g/dL Albumin (3.5-5.0) g/dL Globulin (1.7-4.1) g/dL Albumin/Globulin Ratio (1.0-2.8) SARS-CoV-2 (PCR) (Negative) Imaging Data Chest x-ray: Radiologist's Impression: Launch?Image [address] [address] XRay Report Signed Patient: Nayla Salazar MR#: [id number] : 1975 Acct:[id number] Age/Sex: 47 / F Date of Service: 04/06/22 Loc: ED Accession Number: [id number] ?? Procedure: XR chest 2V Ordering Provider: Cornelio Mariee D.O. PROCEDURE:? XR CHEST 2V ? INDICATIONS:? shortness of breath ? TECHNIQUE:? 2 views of the chest were acquired.? ? COMPARISON:? [facility], , XR CHEST 1V, 05/30/2019, 14:37. ? FINDINGS:? ? Surgical changes and devices:? None.? ? Lungs and pleura:? Lungs are clear.? No pleural effusions or pneumothorax.? ? Mediastinum:? Mediastinal contours are normal.? Heart size is normal.? ? Bones and chest wall:? No suspicious bony abnormalities.? Soft tissues appear unremarkable.? ? IMPRESSION:? No acute cardiopulmonary findings. ? ? Dictated by: Adwoa Orellana M.D. on 04/06/2022 at 12:03 ? ? Approved by: Adwoa Orellana M.D. on 04/06/2022 at 12:04 ? MDM Narrative Medical decision making narrative: Patient presents with increasing shortness of breath and lack of responsiveness to typical therapies. She has stable vital signs, no evidence of infection, clear chest x-ray and significant improvement with bronchodilators and steroids. She is ambulatory without hypoxemia, feeling significant improvement, no i ndication for antibiotics. Return precautions discussed and questions answered to her apparent satisfaction Discharge Plan Departure Patient Disposition: Home Clinical Impression: Asthma with exacerbation Instructions: DI for Asthma -- Adult Activity Restrictions/Additional Instructions: *You have been diagnosed with [asthma exacerbation] *What to do: *Please continue to take your regular medications as directed. [x ] New medication prescriptions sent to your pharmacy: [ [facility] in [facility] [place]] [ ] New medication written as a paper prescription [ ] No new medications given *Please follow up with your primary care provider in 2-3 days, call for an appo intment. Let them know you were seen in the Emergency Department and that we ask that you be seen in follow up. We will electronically transmit a record of today's note if your PCP is in our system *If you do not have a primary care provider please contact the [facility] Resource line at [phone]. They will ask some questions about your medical history and help get you set up with a doctor in the community. *Return to Emergency Department if you should have any new, worsening or conc erning symptoms, such as [fever greater than 101 F, shaking chills, worsening pain, persistent vomiting or other bothersome symptoms] Prescriptions: New prednisone 10 mg tablet See Rx Instructions .ROUTE .COMPLEX Qty: 30 0RF Rx Instructions: Day 1,2,3: 40mg PO Daily Day 4,5,6: 30mg PO Daily Day 7,8,9: 20mg PO Daily Day 10,11,12: 10mg PO Daily #30 No Action albuterol sulfate 90 mcg/actuation Aerosol Powdr Breath Activated 1 puff inhalation PRN PRN (Reason: Shortness Of Breath) 0RF hydrocodone-acetaminophen 5-325 mg tablet 1 tab PO Q6H PRN (Reason: pain) Qty: 15 0RF ondansetron 4 mg tablet,disintegrating 4 mg PO Q8H PRN (Reason: nausea and vomiting) Qty: 10 0RF
[2022-04-06 11:39] LABS: Add Manual Diff / Slide Review NO; Basophils Absolute Auto 100 /uL (0-100); Basophils Percent Auto 0.9 % (0-2); Eosinophils Absolute Auto 800 /uL (0-450); Eosinophils Percent Auto 11.3 % (2-4); Hemoglobin 14.6 g/dL (12.0-16.0); Lymphocytes Absolute Auto 1400 /uL (1100-4500); Lymphocytes Percent Auto 21.1 % (25-40); Mean Corpuscular HGB Conc 34.8 % (30-36); Mean Corpuscular Hemoglobin 32.2 PG (26-34); Mean Corpuscular Volume 92.6 fL (80-100); Monocytes Absolute Auto 300 /uL (0-900); Monocytes Percent Auto 4.6 % (3-14); Neutrophils Absolute Auto 4100 /uL (1500-7000); Neutrophils Percent Auto 62.1 % (50-75); Platelet Count 158 X10^3/uL (150-400); Red Blood Cell Count 4.54 X10^6/uL (4.0-5.2); Red Cell Distribution Width 13.8 % (11.6-14.8); White Blood Cell Count 6.6 X10^3/uL (4.5-11.0)
[2022-04-06] MEDS: ALBUTEROL/IPRATROPIUM 3 ML AMPUL INH (11:40)
[2022-04-06 11:49] LABS: Prothrombin Time 10.7 SECONDS (10.1-12.7)
[2022-04-06 11:54] LABS: Lactate (Lactic Acid) 0.9 mmol/L (0.7-2.1)
[2022-04-06 11:54] LABS: COVID19 -Nasal RAPID Negative (Negative)
[2022-04-06 11:55] LABS: Alanine Aminotransferase 21 IU/L (<35); Albumin 4.3 g/dL (3.5-5.0); Albumin Globulin Ratio 1.5 (1.0-2.8); Alkaline Phosphatase 70 U/L (38-126); Aspartate Aminotransferase 32 IU/L (14-36); BUN Creatinine Ratio 12.8 (6-22); Bilirubin Total 0.5 mg/dL (0.2-1.3); Blood Urea Nitrogen 12 mg/dL (7-17); Calcium 9.1 mg/dL (8.4-10.2); Carbon Dioxide 21 mmol/L (22-32); Chloride 111 mmol/L (98-107); Estimated Glomerular Filt Rate > 60 mL/min (>60); Globulin 2.8 g/dL (1.7-4.1); Glucose 102 mg/dL (70-100); HEMOLYSIS 16 (0-50); Potassium 4.2 mmol/L (3.4-5.1); Sodium 142 mmol/L (137-145); Total Protein 7.1 g/dL (6.3-8.2)
[2022-04-06 12:03] LABS: NT-proBNP (BNP-Adult 18+) 32 pg/mL (<125)
[2022-04-06] MEDS: ALBUTEROL 2.5 MG/3 ML NEB (ADULT) INH (12:20)
[2022-04-06] MEDS: DEXAMETHASONE 10 MG/ML VIAL IV (12:46)
[2022-04-06] MEDS: ALBUTEROL HFA PREPACK 1 BOX MISC (14:42)
== END 2022-04-06 15:05 | disposition home or self-care (01) ==
PROVIDERS: Emergency Provider Emergency Medicine
DX: J45.901 Unspecified asthma with (acute) exacerbation (principal); Z20.822 Contact with and (suspected) exposure to COVID-19
CPT/HCPCS: 36415; 71046; 80053; 83605; 83880; 85025; 85610; 87635; 93005; 94640; 96374; 99284; C9803; J1100; J7613